=== PATIENT | male | born 1980 | race Two or more races ===

== ENCOUNTER 2019-08-31 20:57 | Emergency (ER) | payer SELFPAY ==
[~2019-08-31] VITALS: Ht 170.2 cm; Wt 103.0 kg
[2019-08-31 21:09] VITALS: BP 141/78
== END 2019-08-31 21:47 | disposition home or self-care (01) ==
LOC: ER 21:00
DX: L03.211 Cellulitis of face (principal); L73.8 Other specified follicular disorders; R59.0 Localized enlarged lymph nodes